=== PATIENT | female | born 1990 | race American Indian/Alaskan Native ===

== ENCOUNTER 2017-02-14 19:46 | Emergency (ER) | payer MEDICAID ==
[2017-02-14] MEDS ORDERED: MOTRIN ONE (20:19)
[2017-02-14] MEDS ORDERED: MOTRIN PO ONE (20:24)
--- NOTE | 2017-02-14 22:44 | Emergency Department Report ---
HPI - HPI HPI: 26-year-old female presents today with facial injury post playing basketball with her care at 7 PM today. Patient states that she was hit in the face with a basketball approximately one hour prior to arrival. Patient describes her pain as 10 out of 10 throbbing pain. Positive for nose bleed. Had ibuprofen without relief. Denies fever, chills, nausea, vomiting, chest pain, shortness of breath, abdominal pain, visual changes, dizziness, confusion. <ONEIL MENDES - Last Filed: 02/14/17 22:50> <HUMERA BATES - Last Filed: 02/15/17 00:00> - General Chief Complaint: Nosebleed Time Seen by Provider: 02/14/17 20:56 ED Past Medical Hx - Social History Smoking Status: Unknown if ever smoked Substance Use Type: None <ONEIL MENDES - Last Filed: 02/14/17 22:50> <HUMERA BATES - Last Filed: 02/15/17 00:00> - Medications Home Medications: Home Medications Medication Instructions Recorded Confirmed Last Taken Type Amoxicillin 500 mg PO TID #15 capsule 02/14/17 Unknown Rx Ketorolac [Toradol] 10 mg PO Q6H PRN #20 tablet 02/14/17 Unknown Rx ED Review of Systems ROS: Stated complaint: NOSE INJURY Other details as noted in HPI Constitutional: denies: chills, fever, malaise Eyes: denies: eye pain, eye discharge, vision change ENT: epistaxis. denies: ear pain, throat pain, congestion Respiratory: denies: cough, shortness of breath, wheezing Cardiovascular: denies: chest pain, palpitations Endocrine: no symptoms reported Gastrointestinal: denies: abdominal pain, nausea, vomiting Neurological: denies: headache, weakness, numbness, paresthesias <ONEIL MENDES - Last Filed: 02/14/17 22:50> ROS: Stated complaint: NOSE INJURY Other details as noted in HPI <HUMERA BATES - Last Filed: 02/15/17 00:00> Physical Exam - Physical Exam Vital Signs: Vital Signs 02/14/17 02/14/17 20:02 20:26 Temperature 98.4 F Pulse Rate 102 H Respiratory 18 20 Rate Blood Pressure 126/83 O2 Sat by Pulse 97 Oximetry Physical Exam: GENERAL: The patient is well-developed and well-nourished. Patient is in NAD. HEAD: Normocephalic. Atraumatic. FACE: Tenderness to palpation over nasal bone and left orbital region. Positive for periorbital edema and ecchymosis towards the medial aspect of left eye. EYES: Extraocular motions are intact, PERRL. No conjunctival injection. No pain with extraocular motions. No drainage or bleeding noted. EARS: External auditory canals and tympanic membranes clear; hearing grossly intact. NOSE: Normal nasal mucosa with no nasal discharge. No active bleed. THROAT: No erythema, swelling or exudates. NECK: Full range of motion. No midline or paraspinal tenderness to palpation. CHEST/LUNGS: Clear to auscultation throughout. HEART/CARDIOVASCULAR: Regular rate and rhythm. No murmurs, rubs or gallops. ABDOMEN: Abdomen is soft, nontender. No guarding or rebound tenderness. EXTREMITIES: No range of motion. Peripheral pulses intact. Capillary refill less than 2 seconds. NEURO: Alert and oriented x 3. Normal gait. CN II-XII intact. Symmetrical strength and sensation. Negative Romberg or pronator drift. Cerebellar testing normal. GCS score of 15. <ONEIL MENDES - Last Filed: 02/14/17 22:50> - Physical Exam Vital Signs: Vital Signs 02/14/17 02/14/17 20:02 20:26 Temperature 98.4 F Pulse Rate 102 H Respiratory 18 20 Rate Blood Pressure 126/83 O2 Sat by Pulse 97 Oximetry <HUMERA BATES - Last Filed: 02/15/17 00:00> ED Course Vital Signs 02/14/17 02/14/17 20:02 20:26 Temperature 98.4 F Pulse Rate 102 H Respiratory 18 20 Rate Blood Pressure 126/83 O2 Sat by Pulse 97 Oximetry <ONEIL MENDES - Last Filed: 02/14/17 22:50> Vital Signs 02/14/17 02/14/17 20:02 20:26 Temperature 98.4 F Pulse Rate 102 H Respiratory 18 20 Rate Blood Pressure 126/83 O2 Sat by Pulse 97 Oximetry <HUMERA BATES Last Filed: 02/15/17 00:00> ED Medical Decision Making - Lab Data Vital Signs 02/14/17 02/14/17 02/14/17 20:02 20:26 23:56 Temperature 98.4 F 97.9 F Pulse Rate 102 H 71 Respiratory 18 20 18 Rate Blood Pressure 126/83 Blood Pressure 133/79 [Right] O2 Sat by Pulse 97 97 Oximetry - Radiology Data Radiology results: report reviewed CT facial bones wo contrast There is a transverse comminuted fracture across the bridge of the nasal bone with deviation of the main fragments to the right. There is no evidence of additional facial bone fracture. - Medical Decision Making 26 [address] female [address] CT scan of facial bones wo contrast positive for nasal bone fracture with right sided deviation. Patient will be started on RX for a short course of antibiotics and pain medication and referred to Plastic/Face for follow up and reevaluation. patient is stable, neurologically intact and in no acute distress. patient has no active bleeding at time of discharge. <HUMERA BATES - Last Filed: 02/15/17 00:00> Critical care attestation.: If time is entered above; I have spent that time in minutes in the direct care of this critically ill patient, excluding procedure time. <ONEIL MENDES - Last Filed: 02/14/17 22:50> Critical care attestation.: If time is entered above; I have spent that time in minutes in the direct care of this critically ill patient, excluding procedure time. <HUMERA BATES - Last Filed: 02/15/17 00:00> ED Disposition <ONEIL MENDES - Last Filed: 02/14/17 22:50> Is pt being admited?: No Does the pt Need Aspirin: No <HUMERA BATES - Last Filed: 02/15/17 00:00> Clinical Impression: Nasal bone fx-closed Qualifiers: Encounter type: initial encounter Qualified Code(s): S02.2XXA - Fracture of nasal bones, initial encounter for closed fracture Disposition: DISCHARGED TO HOME OR SELFCARE Condition: Stable Instructions: Nasal Fracture (ED) Additional Instructions: Please follow up with Plastics/Face as discussed. Prescriptions: Amoxicillin 500 mg PO TID #15 capsule Ketorolac [Toradol] 10 mg PO Q6H PRN #20 tablet PRN Reason: Pain Referrals: KELSIE GAXIOLA MD [Staff Physician] - 3-5 Days SEEMA CORONA MD [Primary Care Provider] - 3-5 Days Forms: Work/School Release Form(ED)
--- NOTE | 2017-02-14 23:22 | Cat Scan Report ---
FINAL REPORT PROCEDURE: CT FACIAL BONES WO CON TECHNIQUE: Computerized tomography of the facial bones and soft tissues with axial and coronal sections performed from the cranial aspect of the frontal sinuses to the caudal portion of the mandible without contrast material. HISTORY: Facial bone pain after trauma. Hit in nose by basketball COMPARISON: No prior studies are available for comparison. FINDINGS: Bones: There is a transverse comminuted fracture across the bridge of the nasal bone with moderate deviation to the right of the main fragments. There is no CT evidence of additional facial bone fracture.. Paranasal sinuses: Clear. Soft tissues: No significant abnormality. Other: None. IMPRESSION: There is a transverse comminuted fracture across the bridge of the nasal bone with deviation of the main fragments to the right.
[2017-02-14 23:58] VITALS: BP 133/79
== END 2017-02-15 00:57 | disposition home or self-care (01) ==
LOC: ED 19:46
DX: S02.2XXA Fracture of nasal bones, initial encounter for closed fracture (principal); W21.11XA Struck by baseball bat, initial encounter; Y93.67 Activity, basketball; Y99.8 Other external cause status; Y92.39 Other specified sports and athletic area as the place of occurrence of the external cause
CPT/HCPCS: 70486; 81025

== ENCOUNTER 2017-08-18 16:45 | Emergency (ER) | payer SELFPAY ==
[2017-08-18 17:56] LABS: Basophils % (Auto) 0.6 % (0.0-1.8); Eosinophils % (Auto) 5.3 % (0.0-4.3); Hematocrit 36.9 % (30.3-42.9); Hemoglobin 11.8 gm/dl (10.1-14.3); Mean Corpuscular HGB Conc 32 % (30-34); Platelet Count 292 K/mm3 (140-440); Red Blood Count 5.51 M/mm3 (3.65-5.03); Red Cell Distribution Width 15.8 % (13.2-15.2); White Blood Count 10.2 K/mm3 (4.5-11.0)
[2017-08-18 18:11] LABS: Alanine Aminotransferase 15 units/L (7-56); Albumin 4.3 g/dL (3.9-5); Albumin/Globulin Ratio 1.4 %; Alkaline Phosphatase 100 units/L (35-129); Anion Gap 17 mmol/L; BUN/Creatinine Ratio 13; Bilirubin,Total < 0.20 mg/dL (0.1-1.2); Blood Urea Nitrogen 8 mg/dL (7-17); Calcium 9.5 mg/dL (8.4-10.2); Carbon Dioxide 25 mmol/L (22-30); Chloride 104.6 mmol/L (98-107); Glucose 79 mg/dL (65-100); Lipase 30 units/L (13-60); Mean Corpuscular Hemoglobin 21 pg (28-32); Mean Corpuscular Volume 67 fl (79-97); Potassium 4.3 mmol/L (3.6-5.0); Sodium 142 mmol/L (137-145); Total Protein 7.3 g/dL (6.3-8.2)
[2017-08-18 18:20] LABS: Bilirubin,Urine NEG (Negative); Blood,Urine SM (Negative); Ketones,Urine NEG (Negative); Leukocyte Esterase,Urine LG (Negative); Nitrite,Urine NEG (Negative); Urobilinogen,Urine < 2.0 mg/dL (<2.0)
[2017-08-18 18:21] LABS: WBC,Urine > 182.0 /HPF (0.0-6.0)
[2017-08-18] MEDS ORDERED: TORADOL IV ONE (21:34)
[2017-08-18] MEDS ORDERED: ZOFRAN IV ONE (21:34)
[2017-08-18] MEDS ORDERED: MORPHINE IV ONE (21:34)
[2017-08-18] MEDS ORDERED: ROCEPHIN/NS 1 GM/50 ML 1 GM/50 ML BAG IV ONE (21:34)
[2017-08-18] MEDS ORDERED: NACL 0.9% 1000 ML 1,000 ML IV ONE (21:34)
--- NOTE | 2017-08-18 21:35 | Emergency Department Report ---
ED Abdominal Pain HPI - General Chief Complaint: Abdominal Pain Stated Complaint: LOWER BACK AND ABDOMINAL PAIN Time Seen by Provider: 08/18/17 21:15 Source: patient, RN notes reviewed Mode of arrival: Ambulatory Limitations: No Limitations - History of Present Illness Initial Comments: This is a 26-year-old female, the patient is previously unknown to this provider. She does not have a primary care doctor, and the patient has no chronic medical conditions. The patient presents to the ER with right lower quadrant pain, right flank pain, and right back pain. Pain has been present for about 2 weeks. Positive nausea, no vomiting. No feminine discharge, no irritative/obstructive urinary symptoms. Patient reports one sexual partner, does not wear condoms, no history of gonorrhea/chlamydia. No headache, neck pain, chest pain, sore throat. Patient denies irritative and obstructive urinary symptoms. MD Complaint: abdominal pain, flank pain -: Gradual Location: RLQ, R flank Radiation: R flank, back Severity: moderate Quality: aching Consistency: intermittent Improves With: rest Worsens With: movement Associated Symptoms: nausea. denies: dysuria - Related Data Previous Rx's Medication Instructions Recorded Last Taken Type Amoxicillin 500 mg PO TID #15 capsule 02/14/17 Unknown Rx Ketorolac [Toradol] 10 mg PO Q6H PRN #20 tablet 02/14/17 Unknown Rx Doxycycline [Vibramycin] 100 mg PO Q12HR #28 capsule 08/18/17 Unknown Rx Ibuprofen [Motrin] 600 mg PO Q8H PRN #30 tablet 08/18/17 Unknown Rx Ondansetron [Zofran Odt] 4 mg PO Q8HR PRN #20 tab.rapdis 08/18/17 Unknown Rx oxyCODONE [Roxicodone] 5 mg PO Q6HR PRN #15 tablet 08/18/17 Unknown Rx Allergies Allergy/AdvReac Type Severity Reaction Status Date / Time No Known Allergies Allergy Verified 02/14/17 20:53 ED Review of Systems ROS: Stated complaint: LOWER BACK AND ABDOMINAL PAIN Other details as noted in HPI Constitutional: denies: fever, malaise Eyes: denies: vision change ENT: denies: throat pain, epistaxis Respiratory: denies: cough Cardiovascular: denies: chest pain Gastrointestinal: abdominal pain Genitourinary: denies: dysuria Musculoskeletal: back pain Skin: denies: lesions Neurological: denies: weakness Psychiatric: denies: anxiety ED Past Medical Hx - Past Medical History Previous Medical History?: No - Surgical History Past Surgical History?: No - Social History Smoking Status: Unknown if ever smoked Substance Use Type: None - Medications Home Medications: Home Medications Medication Instructions Recorded Confirmed Last Taken Type Amoxicillin 500 mg PO TID #15 capsule 02/14/17 Unknown Rx Ketorolac [Toradol] 10 mg PO Q6H PRN #20 tablet 02/14/17 Unknown Rx Doxycycline [Vibramycin] 100 mg PO Q12HR #28 capsule 08/18/17 Unknown Rx Ibuprofen [Motrin] 600 mg PO Q8H PRN #30 tablet 08/18/17 Unknown Rx Ondansetron [Zofran Odt] 4 mg PO Q8HR PRN #20 tab.rapdis 08/18/17 Unknown Rx oxyCODONE [Roxicodone] 5 mg PO Q6HR PRN #15 tablet 08/18/17 Unknown Rx ED Physical Exam - General Limitations: No Limitations General appearance: alert, in no apparent distress - Head Head exam: Present: atraumatic, normocephalic - Eye Eye exam: Present: normal appearance, EOMI. Absent: nystagmus - ENT ENT exam: Present: normal exam, normal orophraynx, mucous membranes moist, normal external ear exam - Neck Neck exam: Present: normal inspection, full ROM. Absent: tenderness, meningismus - Respiratory Respiratory exam: Present: normal lung sounds bilaterally. Absent: respiratory distress, wheezes, rales, rhonchi, stridor, chest wall tenderness, accessory muscle use, decreased breath sounds, prolonged expiratory - Cardiovascular Cardiovascular Exam: Present: regular rate, normal rhythm, normal heart sounds. Absent: bradycardia, tachycardia, irregular rhythm, systolic murmur, diastolic murmur, rubs, gallop - GI/Abdominal GI/Abdominal exam: Present: soft, tenderness, normal bowel sounds, other (there is right lower quadrant tenderness, there is right flank tenderness). Absent: distended, guarding, rebound, rigid, pulsatile mass - External exam: Present: normal external exam Speculum exam: Present: normal speculum exam Bi-manual exam: Present: normal bi-manual exam, cervical motion tendernes, adnexal tenderness, uterine enlargement, other (during the gynecologic examination, escorted by ER registered respiratory technician Sergio Darden). Absent: uterine tenderness - Extremities Exam Extremities exam: Present: normal inspection, full ROM, normal capillary refill. Absent: pedal edema, joint swelling - Back Exam Back exam: Present: normal inspection, full ROM, CVA tenderness (R). Absent: paraspinal tenderness - Neurological Exam Neurological exam: Present: alert, oriented X3, normal gait, other (Extraocular movements intact. Tongue midline. No facial droop. Facial sensation intact to light touch in the V1, V2, V3 distribution bilaterally. 5 and 5 strength in 4 extremities.. Sensation is intact to light touch in 4 extremities.). Absent : motor sensory deficit - Psychiatric Psychiatric exam: Present: normal affect, normal mood - Skin Skin exam: Present: warm, dry, intact, normal color. Absent: rash ED Course Vital Signs 08/18/17 08/18/17 16:54 23:10 Temperature 98.8 F 98.8 F Pulse Rate 82 84 Respiratory 16 18 Rate Blood Pressure 156/87 Blood Pressure 119/68 [Left] O2 Sat by Pulse 100 100 Oximetry ED Medical Decision Making - Lab Data Result diagrams: 08/18/17 17:30 08/18/17 17:30 Vital Signs 08/18/17 08/18/17 16:54 23:10 Temperature 98.8 F 98.8 F Pulse Rate 82 84 Respiratory 16 18 Rate Blood Pressure 156/87 Blood Pressure 119/68 [Left] O2 Sat by Pulse 100 100 Oximetry Laboratory Last Values WBC 10.2 K/mm3 (4.5-11.0) 08/18/17 17:30 RBC 5.51 M/mm3 (3.65-5.03) H 08/18/17 17:30 Hgb 11.8 gm/dl (10.1-14.3) 08/18/17 17:30 Hct 36.9 % (30.3-42.9) 08/18/17 17:30 MCV 67 fl (79-97) L 08/18/17 17:30 MCH 21 pg (28-32) L 08/18/17 17:30 MCHC 32 % (30-34) 08/18/17 17:30 RDW 15.8 % (13.2-15.2) H 08/18/17 17:30 Plt Count 292 K/mm3 (140-440) 08/18/17 17:30 Lymph % (Auto) 36.0 % (13.4-35.0) H 08/18/17 17:30 [place] % (Auto) 7.8 % (0.0-7.3) H 08/18/17 17:30 Eos % (Auto) 5.3 % (0.0-4.3) H 08/18/17 17:30 Baso % (Auto) 0.6 % (0.0-1.8) 08/18/17 17:30 Lymph # 3.7 K/mm3 (1.2-5.4) 08/18/17 17:30 [place] # 0.8 K/mm3 (0.0-0.8) 08/18/17 17:30 Eos # 0.5 K/mm3 (0.0-0.4) H 08/18/17 17:30 Baso # 0.1 K/mm3 (0.0-0.1) 08/18/17 17:30 Seg Neutrophils % 50.3 % (40.0-70.0) 08/18/17 17:30 Seg Neutrophils # 5.1 K/mm3 (1.8-7.7) 08/18/17 17:30 Sodium 142 mmol/L (137-145) 08/18/17 17:30 Potassium 4.3 mmol/L (3.6-5.0) 08/18/17 17:30 Chloride 104.6 mmol/L (98-107) 08/18/17 17:30 Carbon Dioxide 25 mmol/L (22-30) 08/18/17 17:30 Anion Gap 17 mmol/L 08/18/17 17:30 BUN 8 mg/dL (7-17) 08/18/17 17:30 Creatinine 0.6 mg/dL (0.7-1.2) L 08/18/17 17:30 Estimated GFR > 60 ml/min 08/18/17 17:30 BUN/Creatinine Ratio 13 % 08/18/17 17:30 Glucose 79 mg/dL (65-100) 08/18/17 17:30 Calcium 9.5 mg/dL (8.4-10.2) 08/18/17 17:30 Total Bilirubin < 0.20 mg/dL (0.1-1.2) 08/18/17 17:30 AST 16 units/L (5-40) 08/18/17 17:30 ALT 15 units/L (7-56) 08/18/17 17:30 Alkaline Phosphatase 100 units/L (35-129) 08/18/17 17:30 Total Protein 7.3 g/dL (6.3-8.2) 08/18/17 17:30 Albumin 4.3 g/dL (3.9-5) 08/18/17 17:30 Albumin/Globulin Ratio 1.4 % 08/18/17 17:30 Lipase 30 units/L (13-60) 08/18/17 17:30 Urine Color Yellow (Yellow) 08/18/17 Unknown Urine Turbidity Slightly-cloudy (Clear) 08/18/17 Unknown Urine pH 7.0 (5.0-7.0) 08/18/17 Unknown Ur Specific [place] 1.013 (1.003-1.030) 08/18/17 Unknown Urine Protein 30 mg/dl mg/dL (Negative) 08/18/17 Unknown Urine Glucose (UA) Neg mg/dL (Negative) 08/18/17 Unknown Urine Ketones Neg mg/dL (Negative) 08/18/17 Unknown Urine Blood Sm (Negative) 08/18/17 Unknown Urine Nitrite Neg (Negative) 08/18/17 Unknown Ur Reducing Substances Not Reportable 08/18/17 Unknown Urine Bilirubin Neg (Negative) 08/18/17 Unknown Urine Ictotest Not Reportable 08/18/17 Unknown Urine Urobilinogen < 2.0 mg/dL (<2.0) 08/18/17 Unknown Ur Leukocyte Esterase Lg (Negative) 08/18/17 Unknown Urine WBC (Auto) > 182.0 /HPF (0.0-6.0) H 08/18/17 Unknown Urine RBC (Auto) 16.0 /HPF (0.0-6.0) 08/18/17 Unknown U Epithel Cells (Auto) 1.0 /HPF (0-13.0) 08/18/17 Unknown Urine HCG, Qual Negative (Negative) 08/18/17 Unknown - Radiology Data Radiology results: pending, report reviewed, image reviewed CT scan of the abdomen and pelvis with IV contrast: Normal study, appendix within normal limits, kidneys within normal limits, no obvious intra-abdominal pathology - Medical Decision Making Differential diagnosis: Urinary tract infection, pyelonephritis, appendicitis, renal colic, pelvic inflammatory disease Assessment and plan: 26-year-old female with nonspecific right lower quadrant, right flank and right back pain, cervical motion tenderness and adnexal tenderness, negative CT scan of the abdomen and pelvis, urinalysis demonstrates large leukocyte esterase, with 182 WBCs, however she denies irritative and obstructive urinary symptoms. May be atypical presentation of urinary tract infection, but we'll treat empirically for pelvic inflammatory disease. Patient treated aggressively with pain medication, and will be discharged with antibiotics to treat pelvic inflammatory disease. She is given appropriate instructions, patient understands return precautions. Critical care attestation.: If time is entered above; I have spent that time in minutes in the direct care of this critically ill patient, excluding procedure time. ED Disposition Clinical Impression: Abdominal pain Disposition: DC-01 TO HOME OR SELFCARE Is pt being admited?: No Does the pt Need Aspirin: No Condition: Stable Instructions: Pelvic Inflammatory Disease (ED) Additional Instructions: As we discussed, your laboratory studies appeared to be within normal limits. You are not . Doxycycline can cause upset stomach, ibuprofen can cause upset stomach. Make certain to take these medications with food. Doxycycline can cause skin rash, so avoid prolonged exposure to the sun. Given all this, you'll be treated empirically for disease called pelvic inflammatory disease. We typically treat young females with unexplained lower abdominal pain to protect your ability to have children safely in the future. Cultures were sent today, and results will be available next 3-5 days. Please have your primary care doctor call the medical records department to obtain your culture results. Take the antibiotic therapy as directed. Take the nausea medication and pain medication as directed. I recommend outpatient testing for sexually transmitted diseases, including hepatitis, syphilis and HIV. I also recommend that you abstain from sexual activity until you have completed her antibiotic therapy, a physician states that it is safe for you to resume sexual activity, and any partners that you have been sexually active with have been tested/treated/evaluated for sexual transmitted diseases. Please follow-up with physician within 3-5 days. I recommend that you return to the ER right away with worsening pain, migration of pain, intractable nausea/vomiting, inability tolerate liquid feeds. Prescriptions: Doxycycline [Vibramycin] 100 mg PO Q12HR #28 capsule Ibuprofen [Motrin] 600 mg PO Q8H PRN #30 tablet PRN Reason: Pain Ondansetron [Zofran Odt] 4 mg PO Q8HR PRN #20 tab.rapdis PRN Reason: Nausea oxyCODONE [Roxicodone] 5 mg PO Q6HR PRN #15 tablet PRN Reason: Pain Referrals: PRIMARY CARE, [Primary Care Provider] - 3-5 Days [facility] [Provider Group] - 3-5 Days [facility] [Provider Group] - 3-5 Days [facility] [Provider Group] - 3-5 Days
[2017-08-18] MEDS ORDERED: NACL ONE (22:28)
[2017-08-18] MEDS ORDERED: MORPHINE ONE (22:59)
[2017-08-18 23:11] VITALS: BP 119/68
--- NOTE | 2017-08-18 23:26 | Cat Scan Report ---
FINAL REPORT PROCEDURE: CT abdomen and pelvis with contrast. TECHNIQUE: Computerized axial tomography of the abdomen and pelvis was performed after the IV injection of iodinated nonionic contrast. HISTORY: Right lower quadrant abdominal pain. COMPARISON: No prior studies are available for comparison. FINDINGS: The lung bases are clear. There are no pleural effusions. The heart size is normal. The liver, spleen and pancreas appear normal. The gallbladder is contracted. The adrenal glands are not enlarged. Both kidneys appear normal in size and configuration. The abdominal aorta and major branch vessels enhance normally. There is no retroperitoneal adenopathy. The unopacified gastrointestinal tract is unremarkable. A normal appendix is visible. The bladder, uterus and adnexal regions are unremarkable. The regional skeleton appears intact. IMPRESSION: Normal studies of the abdomen and pelvis.
== END 2017-08-18 23:59 | disposition home or self-care (01) ==
LOC: ED 16:45
DX: R10.31 Right lower quadrant pain (principal); R11.0 Nausea
CPT/HCPCS: 36415; 74177; 80053; 81001; 81025; 83690; 85025; 87086; 87210; 87591; 96365; 96375; 99284; J0696; J1885; J2270; J2405; J7030; Q9967